=== PATIENT | female | born 1955 | race Caucasian/White ===

== ENCOUNTER 2022-06-14 10:51 | Outpatient (CLI) | payer OTHER, SELFPAY ==
[2022-06-14 23:06] LABS: Albumin* 4.5 g/dL (3.3-5.0); Chloride* 103 mmol/L (96-114)
[2022-06-14 23:07] LABS: Potassium* 4.1 mmol/L (3.6-5.1); Sodium* 137 mmol/L (135-149)
[2022-06-14 23:09] LABS: Alkaline Phosphatase* 64 U/L (40-150); Aspartate Amino Transferase* 21 U/L (12-35); Bilirubin Total* 0.6 mg/dL (0.1-1.5); Blood Urea Nitrogen* 18 mg/dL (7-30); Carbon Dioxide* 25 mmol/L (20-32); Creatinine* 0.7 mg/dL (0.5-1.5); Estimated Glomerular Filt Rate 97 ml/min; Total Protein* 6.8 g/dL (6.0-8.3)
[2022-06-14 23:10] LABS: Alanine Aminotransferase* 12 U/L (4-35); Calcium* 9.1 mg/dL (8.4-10.6); Glucose* 93 mg/dL (60-115)
== END 2022-06-14 10:52 | disposition home or self-care (01) ==
LOC: FRMREF 10:53
PROVIDERS: PCP Family Medicine; Visit Provider Family Medicine
DX: Z00.00 Encounter for general adult medical examination without abnormal findings (principal); E78.5 Hyperlipidemia, unspecified
CPT/HCPCS: 80053